=== PATIENT | female | born 1985 | race Caucasian/White ===

== ENCOUNTER 2017-08-18 15:28 | Emergency (ER) | payer OTHER ==
[2017-08-18 15:41] VITALS: BP 119/80
--- NOTE | 2017-08-18 16:17 | PHYS DOC ---
Past History Past Medical History: No Pertinent History Past Surgical History: Cholecystectomy Smoking: Non-smoker Alcohol Use: Occasionally Drug Use: None Adult General Chief Complaint Chief Complaint: FOOT INJURY PAIN HPI HPI 31-year-old female patient states she hit the wall accidentally and injured her right great toe prior to arrival to ER. Patient rated her pain moderate and denies other injuries and focal neuro deficit. Patient denies . Review of Systems Review of Systems Constitutional: Denies fever or chills [] Eyes: Denies change in visual acuity, redness, or eye pain [] HENT: Denies nasal congestion or sore throat [] Respiratory: Denies cough or shortness of breath [] Cardiovascular: No additional information not addressed in HPI [] GI: Denies abdominal pain, nausea, vomiting, bloody stools or diarrhea [] : Denies dysuria or hematuria [] Musculoskeletal: Reports extremity pain, denies back pain [] Integument: Denies rash or skin lesions [] Neurologic: Denies headache, focal weakness or sensory changes [] Endocrine: Denies polyuria or polydipsia [] All other systems were reviewed and found to be within normal limits, except as documented in this note. Allergies Allergies Allergies Coded Allergies Type Severity Reaction Last Updated Verified Penicillins Allergy Intermediate Hives 10/28/14 Yes Physical Exam Physical Exam Constitutional: Well developed, well nourished, no acute distress, non-toxic appearance. [] HENT: Normocephalic, atraumatic Eyes: PERRLA, EOMI, conjunctiva normal, no discharge. [] Neck: Normal range of motion, no tenderness, supple, no stridor. [] Cardiovascular:Heart rate regular rhythm, no murmur [] Lungs & Thorax: Bilateral breath sounds clear to auscultation [] Extremities: Small abrasion in medial side of the right great toe with mild contusion Neurologic: Alert and oriented X 3, normal motor function, normal sensory function, no focal deficits noted. [] Psychologic: Affect normal, judgement normal, mood normal. [] Current Patient Data Vital Signs Vital Signs Date Time Temp Pulse Resp B/P (MAP) Pulse Ox O2 Delivery O2 Flow Rate FiO2 08/18/17 15:41 98.0 74 16 100 EKG EKG [] Radiology/Procedures Radiology/Procedures [address] [address] IMAGING REPORT Signed PATIENT: SHAISTA CARD ACCOUNT: [id number] : 1985 LOCATION: ER AGE: 31 SEX: F EXAM STATUS: REG ER ORD. PHYSICIAN: NATHANIEL CHAPA MD REASON: injury PROCEDURE: TOES RIGHT Three-view right toe radiographs 08/18/2017 CLINICAL HISTORY: Right first through third toe pain after running into wall while skateboarding earlier today. AP, lateral and oblique digital radiographs of the right toes were obtained. Mild hallux valgus deformity is noted. No fracture or dislocation is seen. No radiopaque foreign body is noted. IMPRESSION: No fracture or dislocation is seen. Electronically signed by: North Nunn MD (08/18/2017 4:17 PM) [facility] DICTATED AND SIGNED BY: NORTH NUNN MD DATE: 08/18/17 [id number] CC: ALIA AGUIAR; NATHANIEL CHAPA MD ~ [] Course & Med Decision Making Course & Med Decision Making Pertinent Imaging studies reviewed. (See chart for details) discharge: I've spoken with the patient and/or caregivers. I've explained the patient's condition, diagnosis and treatment plan based on information available to me at this time. I've answered the patient's and/or caregivers questions and addressed any concerns. The patient and/or caregivers have a good understanding the patient's diagnosis, condition and treatment plan as can be expected at this point. Vital signs have been stabilized. The patient's condition is stable for discharge from the emergency department. The patient will pursue further outpatient evaluation with her primary care provider or other designated consulting physician as outlined in the discharge instructions. Patient and/or caregivers are agreeable to this plan of care and follow-up instructions have been explained in detail. The patient and/or caregivers have received these instructions in written format and expressed understanding of these discharge instructions. The patient and her caregivers are aware that if any significant change in condition or worsening of symptoms should prompt him to immediately return to this of the closest emergency department. If an emergent department is not readily available I would encourage him to call 911. [] Dragon Disclaimer Dragon Disclaimer This electronic medical record was generated, in whole or in part, using a voice recognition dictation system. Departure Departure: Impression: Primary Impression: Contusion of great toe, right Disposition: HOME, SELF-CARE (At 1615) Condition: STABLE Referrals: ALIA AGUIAR (PCP) Patient Instructions: Contusion Additional Instructions: Apply ice on the affected area Take [id number] Tylenol or ibuprofen as needed for pain NATHANIEL CHAPA MD August 18, 2017 16:17
--- NOTE | 2017-08-18 16:20 | RAD ---
Three-view right toe radiographs 08/18/2017 CLINICAL HISTORY: Right first through third toe pain after running into wall while skateboarding earlier today. AP, lateral and oblique digital radiographs of the right toes were obtained. Mild hallux valgus deformity is noted. No fracture or dislocation is seen. No radiopaque foreign body is noted. IMPRESSION: No fracture or dislocation is seen. Electronically signed by: North Nunn MD (08/18/2017 4:17 PM) [facility]
== END 2017-08-18 16:24 | disposition home or self-care (01) ==
LOC: ER 15:28
DX: S90.111A Contusion of right great toe without damage to nail, initial encounter (principal); Z88.0 Allergy status to penicillin; W22.01XA Walked into wall, initial encounter; Y93.51 Activity, roller skating (inline) and skateboarding; Y99.8 Other external cause status; Y92.89 Other specified places as the place of occurrence of the external cause
CPT/HCPCS: 73660; 99284

== ENCOUNTER 2021-06-20 18:08 | Emergency (ER) | payer OTHER ==
[~2021-06-20] VITALS: Ht 149.9 cm; Wt 75.3 kg
[2021-06-20 18:14] VITALS: BP 121/78
[2021-06-20] MEDS ORDERED: KETOROLAC 30 MG/ML VIAL. IVP ONE (18:45)
--- NOTE | 2021-06-20 19:30 | PHYS DOC ---
Past History Past Medical History: No Pertinent History (MEHUL ESTRADA) Past Surgical History: Cholecystectomy (MEHUL ESTRADA) Smoking: Non-smoker Alcohol Use: Occasionally Drug Use: None (MEHUL ESTRADA) General Adult EDM: Chief Complaint: LOWER EXTREMITY SWELLING HPI: HPI: Patient is a 35 year old female who presents with left lower extremity pain and swelling. Patient states that earlier this morning, she had left calf pain that resolved spontaneously. While she was at work, she noticed that the left calf was swollen. Patient reports it has gotten better, but is concerned about DVT. Patient has never had a clot before nor does she have thrombophilic disorders. Patient denies chest pain, palpitations, shortness of breath, cough. (MEHUL ESTRADA) Review of Systems: Review of Systems: ROS negative or noncontributory except as mentioned in HPI. (MEHUL ESTRADA) Current Medications: Current Meds: Current Medications Medications (Trade) Dose Ordered Sig/Cecilia Start Time Stop Time Status Last Admin Dose Admin Ketorolac Tromethamine (Toradol 30mg Vial) 30 mg 1X ONCE 06/20/21 18:45 06/20/21 18:46 DC 06/20/21 18:45 30 MG (MEHUL ESTRADA) Allergies: Allergies: Allergies Coded Allergies Type Severity Reaction Last Updated Verified Penicillins Allergy Intermediate Hives 10/28/14 Yes (MEHUL ESTRADA) Physical Exam: PE: Constitutional: Well developed, well nourished, no acute distress, non-toxic appearance. HENT: Normocephalic, atraumatic, bilateral external ears normal, nose normal. Eyes: EOMI, conjunctiva normal, no discharge. Neck: Normal range of motion, no stridor. Skin: Warm, dry, no erythema, no rash. Extremities: No tenderness along deep venous tract, no cyanosis, no clubbing, active and passive ROM intact, no edema, negative Homans' sign. Neurologic: Alert and oriented x4, steady and symmetrical upright gait, no focal deficits noted. (MEHUL ESTRADA) Current Patient Data: Vital Signs: Vital Signs Date Time Temp Pulse Resp B/P (MAP) Pulse Ox O2 Delivery O2 Flow Rate FiO2 06/20/21 18:14 98.5 77 16 121/78 (92) 99 Room Air (MEHUL ESTRADA) Heart Score: C/O Chest Pain: No (MEHUL ESTRADA) Course & Med Decision Making: Course & Med Decision Making Pertinent Labs and Imaging studies reviewed. (See chart for details) Due to unilateral symptoms and low risk, D-dimer ordered to rule out DVT. D-dimer positive, lower extremity venous ultrasound ordered. Ultrasound negative for DVT at this time. Discussed options with patient. The patient I decided using shared decision-making model to defer blood thinners at this time and repeat ultrasound in 1 week's time. Patient will call her primary care provider in the morning to schedule outpatient imaging and/or an appointment in office. If she is unable to obtain repeat imaging, she should absolutely return to the emergency department for repeat ultrasound to definitively rule out DVT. Patient was given supportive treatment measures for muscle strain however was instructed to have a repeat ultrasound performed in 1 week. Strict return precautions were provided to the patient. Patient understands and is agreeable to discharge plan. (MEHUL ESTRADA) Course & Med Decision Making See Dio note for details. (SHE NEWTON MD) Dragon Disclaimer: Dragon Disclaimer: This chart was dictated in whole or in part using Voice Recognition software in a busy, high-work load, and often noisy Emergency Department environment. It may contain unintended and wholly unrecognized errors or omissions. (MEHUL ESTRADA) Departure Departure: Impression: Primary Impression: Strain of gastrocnemius muscle Qualified Codes: S86.112A - Strain of other muscle(s) and tendon(s) of posterior muscle group at lower leg level, left leg, initial encounter Additional Impressions: No deep vein thrombosis (DVT) Elevated d-dimer Disposition: HOME / SELF CARE / HOMELESS Condition: STABLE Referrals: ANA ZAPATA DO (PCP) Patient Instructions: Muscle Strain, [id number] Additional Instructions: EMERGENCY DEPARTMENT GENERAL DISCHARGE INSTRUCTIONS Thank you for coming to [facility] (ED) today and trusting us with you care. We trust that you had a positive experience in our Emergency Department. If you wish to speak to the department management, you may call the director at [phone]. YOUR FOLLOW UP INSTRUCTIONS ARE FOLLOWS: 1. Follow up with your primary care doctor. If you do not have a primary doctor, please ask for a resource list of physicians or clinics that may be able to assist you with follow up care. 2. The emergency provider has interpreted your imaging studies, if any were ordered. The radiology medical support specialist also reviewed them. If there is a change in the findings, you will be notified in 48 hours when at all possible. 3. If a lab test or culture has been done, your results will be reviewed and you will be notified if you need a change in treatment. 4. Follow instructions verbalized to you and refer to the printouts if needed. ADDITIONAL INSTRUCTIONS AND INFORMATION: 1. Your care today has been supervised by a physician who is specially trained in emergency care. Many problems require more than one evaluation for a complete diagnosis and treatment. We recommend that you schedule your follow up appointment as recommended to ensure complete treatment of you illness or injury. If you are unable to obtain follow up care and continue to have a problem, or if your condition worsens, we recommend that you return to the ED. 2. We are not able to safely determine your condition over the phone nor are we able to give sound medical advice over the phone. For these safety reasons, if you call for medical advice we will ask you to come to the ED for further evaluation. 3. If you have any questions regarding these discharge instructions please call the ED at [phone]. SAFETY INFORMATION: In the interest of safety, wellness, and injury prevention; we encourage you to wear your seat belt, if you smoke; quite smoking, and we encourage family to use a protective helmet for bicycling and other sporting events that present an increased risk for head injury. IF YOUR SYMPTOMS WORSEN OR NEW SYMPTOMS DEVELOP, OR YOU HAVE CONCERNS ABOUT YOUR CONDITION; OR IF YOUR CONDITION WORSENS WHILE YOU ARE WAITING FOR YOUR FOLLOW UP APPOINTMENT; EITHER CONTACT YOUR PRIMARY CARE DOCTOR, THE PHYSICIAN WHOSE NAME AND NUMBER YOU WERE GIVEN, OR RETURN TO THE ED IMMEDIATELY. Attending Signature Attending Signature I have participated in the care of this patient and I have reviewed and agree with all pertinent clinical information above including history, exam, and recommendations. (SHE NEWTON MD) Dragon Disclaimer This chart was dictated in whole or in part using Voice Recognition software in a busy, high-work load, and often noisy Emergency Department environment. It may contain unintended and wholly unrecognized errors or omissions. (SHE NEWTON MD) MEHUL ESTRADA Jun 20, 2021 19:30 SHE NEWTON MD Jun 22, 2021 22:01
--- NOTE | 2021-06-20 22:57 | RAD ---
Exam Date: 06/20/2021 9:00 PM US DPLX VENOUS EXTREMITY LOWER LT Indication: Reason: LLE pain, elevated Ddimer / Spl. Instructions: / History: . INDICATION: Lower extremity pain/swelling TECHNIQUE: Grayscale sonogram, color Doppler, and spectral Doppler waveform analysis of the lower ex tremity venous system was performed on the left. FINDINGS: The left common femoral, superficial femoral, central greater saphenous, popliteal, posterior tibial and peroneal veins are compressible and demonstrate normal color Doppler flow and normal spontaneous phasic waveforms or normal response to augmentation. There is a 5.2 x 2.0 x 1.0 cm complex popliteal cyst. IMPRESSION: No evidence of deep venous thrombosis in the left lower extremity. Complex popliteal cyst noted. Electronically signed by: Maykel Wright MD (06/20/2021 10:54 PM) [facility]
== END 2021-06-20 22:35 | disposition home or self-care (01) ==
LOC: ER 18:08
DX: S86.112A Strain of other muscle(s) and tendon(s) of posterior muscle group at lower leg level, left leg, initial encounter (principal); R79.1 Abnormal coagulation profile; Z88.0 Allergy status to penicillin; X58.XXXA Exposure to other specified factors, initial encounter; Y93.89 Activity, other specified; Y92.89 Other specified places as the place of occurrence of the external cause; Y99.8 Other external cause status
CPT/HCPCS: 36415; 85379; 93971; 96374; 99284; J1885

== ENCOUNTER 2021-06-22 10:38 | Emergency (ER) | payer OTHER ==
[~2021-06-22] VITALS: Ht 149.9 cm; Wt 75.3 kg
[2021-06-22 10:51] VITALS: BP 129/80
--- NOTE | 2021-06-22 11:08 | PHYS DOC ---
Past History Past Medical History: No Pertinent History Past Surgical History: Cholecystectomy Smoking: Non-smoker Alcohol Use: Occasionally Drug Use: None Adult General Chief Complaint Chief Complaint: LOWER EXT PAIN [facility] HPI Patient is a 35-year-old female presenting to the emergency department for evaluation of left knee pain that she says has been going on for 1 to 2 weeks. She denies any known injury but says she could have been overcompensating from her right ankle sprain and using her left leg more. She says that she feels a popping sensation in her left knee at times and sometimes a popping gives her relief from her pain. Patient was seen 2 days ago for the same complaint and had an elevated D-dimer and received an ultrasound that revealed a popliteal cyst and by the measurements is likely at least moderate in size. She says the pain is not the main issue rather it is that she has decreased range of motion of her left knee as she feels tightness and swelling that keeps her from flexing her knee past 45 degrees. She denies chest pain shortness of breath and is in no acute distress with normal vital signs. Review of Systems Review of Systems Constitutional: Denies fever or chills [] Respiratory: Denies cough or shortness of breath [] Cardiovascular: No additional information not addressed in HPI [] Musculoskeletal: Denies back pain. + L knee joint pain [] Integument: Denies rash or skin lesions [] Neurologic: Denies headache, focal weakness or sensory changes [] All other systems were reviewed and found to be within normal limits, except as documented in this note. Allergies Allergies Allergies Coded Allergies Type Severity Reaction Last Updated Verified Penicillins Allergy Intermediate Hives 10/28/14 Yes Physical Exam Physical Exam Constitutional: Well developed, well nourished, no acute distress, non-toxic appearance. [] Abdomen: Bowel sounds normal, soft, no tenderness, no masses, no pulsatile masses. [] Skin: Warm, dry, no erythema, no rash. [] Extremities: Decreased active and passive range of motion of the left knee due to pain and swelling. Comparing to the right side it does appear that she has a joint effusion. Distally she is neurovascular intact. Neurologic: Alert and oriented X 3, normal motor function, normal sensory function, no focal deficits noted. [] Current Patient Data Vital Signs Vital Signs Date Time Temp Pulse Resp B/P (MAP) Pulse Ox O2 Delivery O2 Flow Rate FiO2 3/24/22 10:51 97.9 73 16 129/80 (96) 100 Room Air EKG EKG [] Radiology/Procedures Radiology/Procedures [] Heart Score C/O Chest Pain: No Risk Factors: Risk Factors: DM, Current or recent (<one month) smoker, HTN, HLP, family history of CAD, obesity. Risk Scores: Risk Factors: DM, Current or recent (<one month) smoker, HTN, HLP, family history of CAD, obesity. Course & Med Decision Making Course & Med Decision Making Patient with primarily left knee pain and had a negative ultrasound for DVT 2 days ago. I suspect the popliteal cyst is causing most of her problems but she may have a knee effusion as well from possible ligamentous injury. I will check x-ray and reassess. I offered to give her something for pain but she says she did not want anything. X-ray is negative for acute process but told her she likely does have an effusion and cyst that is causing her symptoms. Patient and are very upset that this was not brought to their attention 2 days ago and I told him I cannot speak to what happened 2 days ago but for now would recommend rice precautions NSAIDs and orthopedic follow-up to see if possible cyst removal would be recommended. Patient told she can get repeat follow-up 5 days from now to ensure there is no DVT but repeating ultrasound right now would not be warranted. I told her to follow-up with primary care provider as well with the next 3 to 4 days and come back to emergency department sooner with worsening pain swelling shortness of breath chest pain or other general concerns. Patient aware and agreeable with plan and verbalized understanding of above instructions. Dragon Disclaimer Dragon Disclaimer This electronic medical record was generated, in whole or in part, using a voice recognition dictation system. Departure Departure: Impression: Primary Impression: Popliteal cyst Additional Impressions: Effusion, left knee Left knee pain Disposition: HOME / SELF CARE / HOMELESS Condition: STABLE Referrals: ANA ZAPATA DO (PCP) JOSE WINSTON Jr. DO Patient Instructions: Salmeron's Cyst Additional Instructions: Rest, Ice, Compression, Elevation, 800mg Ibuprofen every 8 hours. Call to follow with Ortho. Scripts Ibuprofen (IBUPROFEN) 800 Mg Tablet 1 TAB PO TID, #30 TAB Prov: ALLIE HUANG DO 06/22/21 Problem Qualifiers Primary Impression: Popliteal cyst Laterality: left Qualified Codes: M71.22 - Synovial cyst of popliteal space [Salmeron], left knee ALLIE HUANG DO Jun 22, 2021 11:08
--- NOTE | 2021-06-22 11:20 | RAD ---
XR KNEE _3 VIEWS_LT History: Reason: pain, swelling x 2 weeks, no known injury / Spl. Instructions: / History: Technique: 3 views left knee Comparison: October 28, 2014 Findings: No dislocation. No acute fracture. No significant knee joint effusion. Impression: 1. No acute osseous abnormality. Electronically signed by: Antoine Patterson DO (06/22/2021 11:17 AM) [id number]
[2021-06-22] MEDS ORDERED: IBUP800T19 PO (11:46)
[2021-06-22] MEDS ORDERED: HYDR-2155 PO (12:16)
== END 2021-06-22 12:05 | disposition home or self-care (01) ==
LOC: ER 10:38
DX: M71.22 Synovial cyst of popliteal space [Baker], left knee (principal); M25.462 Effusion, left knee; Z88.0 Allergy status to penicillin
CPT/HCPCS: 73562; 99283